=== PATIENT | female | born 1950 ===

== ENCOUNTER 2016-07-31 13:31 | Outpatient (CLI) | payer BC ==
[2016-07-31 14:41] LABS: #Basophils 0.1 thou/uL (0.0-0.2); #Eosinphils 0.1 thou/uL (0.0-0.7); #Lymphocytes 2.3 thou/uL (1.20-3.40); #Monocytes 0.3 thou/uL (0.11-0.59); %Basophils 1.4 % (0.0-1.0); %Eosinophils 2.1 % (0.0-10.0); %Lymphocytes 47.9 % (21.0-51.0); %Monocytes 6.8 % (0.0-10.0); %Neutrophils 41.8 % (42.0-75.0); ALT (SGPT) 27 U/L (0-55); AST (SGOT) 26 U/L (5-34); Albumin 3.8 g/dL (3.4-4.8); Alkaline Phosphatase 56 U/L (40-150); Anion Gap 13 mmol/L (10-20); BUN (Urea Nitrogen) 17 mg/dL (9.8-20.1); Bilirubin, Direct 0.2 mg/dL (0.1-0.3); Bilirubin, Total 0.4 mg/dL (0.2-1.2); Calc. Creatinine Clearance 0 mL/min (70-130); Calcium 9.4 mg/dL (7.8-10.44); Carbon Dioxide 24 mmol/L (23-31); Cardiac Risk 2.7 (Less than 4.5); Chloride 106 mmol/L (98-107); Cholesterol 173 mg/dL (< 200 Desired); Estimated GFR-MDRD 69; Glucose 91 mg/dL (80-115); HDL Cholesterol 64 mg/dL (>60 Neg Risk); Hemoglobin 13.1 g/dL (12.0-16.0); LDL Cholesterol, Calculated 96 mg/dL; Mean Corpuscular HGB CONC 32.3 g/dL (32.0-36.0); Mean Corpuscular Hemoglobin 27.2 pg (27.0-31.0); Mean Corpuscular Volume 84.4 fl (81.0-99.0); Mean Platelet Volume 6.6 fL (7.4-10.4); Platelet Count 208 thou/uL (130-400); Potassium 4.4 mmol/L (3.5-5.1); Protein, Total 6.9 g/dL (5.8-8.1); RBC Distribution Width 13.5 % (11.5-14.5); Red Blood Cell (RBC) Count 4.83 mill/uL (4.20-5.40); Sodium 139 mmol/L (136-145); Triglycerides 67 mg/dL (Less than 150); White Blood Cell (WBC) Count 4.7 thou/uL (4.8-10.8)
[2016-07-31 14:44] LABS: Hemoglobin A1c 5.5 % (4.0-6.0)
== END 2016-07-31 13:32 | disposition home or self-care (01) ==
LOC: NAVSJIPCSP 13:31
PROVIDERS: ATTEND Family Medicine
DX: E78.00 Pure hypercholesterolemia, unspecified (principal); J30.9 Allergic rhinitis, unspecified; I10 Essential (primary) hypertension; R60.9 Edema, unspecified; Z79.899 Other long term (current) drug therapy
CPT/HCPCS: 36415; 80048; 80061; 80076; 83036; 84443; 85025